=== PATIENT | male | born 2005 | race Caucasian/White ===

== ENCOUNTER 2024-05-03 07:41 | Emergency (ER) | payer OTHER, SELFPAY ==
--- NOTE | ~2024-05-03 | CT_ITS ---
EXAMINATION: CT HEAD WITHOUT CONTRAST CLINICAL INFORMATION: Headache COMPARISON: None available. TECHNIQUE: Contiguous axial imaging was performed from the skull base to vertex without intravenous administration of contrast. This CT examination was performed using dose optimization techniques as appropriate, variously including the following: *Automated exposure control *Adjustment of mA and/or kV according to patient size (this includes techniques or standardized protocols for targeted exams where dose is matched to indication/reason for exam; i.e. extremities or head) *Use of iterative reconstruction technique DLP: 592 mGy/cm FINDINGS: There is no acute intra-axial, extra-axial bleed, masses or midline shift. There is no acute infarction in evolution. There is no edema. The ashley to white matter differentiation is maintained normal. The lateral ventricles are symmetrical in size and configuration without enlargement. No abnormality seen in the posterior fossa. Bone windows reveal no calvarial abnormality. The scalp soft tissue abnormality. The paranasal sinuses and mastoid air cells are well-aerated. CT/CT head/brain wo IV con IMPRESSION: No acute intracranial process seen. Electronically signed by: Chuck Resendiz MD 05/03/2024 09:03 AM EDT
[2024-05-03 07:44] VITALS: BP 146/79; PULSE 92; RESP 16; TEMP 37; O2SAT 99; BMI 17.9
--- NOTE | 2024-05-03 07:49 | PC.NURSE ---
pt not wanting to do blood work at this time stating no mom i am not doing blood work I would rather this RN stated that we can wait to order anything until they got into the back to talk with a provider
--- NOTE | 2024-05-03 08:27 | ED.NEUROSD ---
HPI - Neuro Symptoms/Deficit General Chief Complaint: Neuro Symptoms/Deficit Stated Complaint: headache, stiff neck, weakness Time Seen by Provider: 05/03/24 08:10 History of Present Illness HPI Narrative: patient is a 18-year-old male presents today with having buzzing vibration sensation to his head. Denies any changes in vision there is no fever no chills. There is no focal weakness. Complaining of some pain to the trapezius area on the right side. Went to urgent Care was given Flonase. Has a history of anxiety. Patient absolutely refused any blood work. Was worried about his head after looking in the Internet. Denies any sudden in the family. No family history of subarachnoid hemorrhage. No history of migraine in the past there is no pain. Related Data Allergies Allergy/AdvReac Type Severity Reaction Status Date / Time doxycycline Allergy Vomiting Verified 05/03/24 07:48 Review of Systems Review of Systems: Positive buzzing sensation to his head on the right side Yes all other systems are reviewed and are negative PMFSH Past Medical History Attestation statement: The following information was validated with the patient. Social History Social History Smoked in Last 30 Days: Yes Advance Directives: No Advance Directives Information Provided: Yes Physical Exam Vital Signs: Vital Signs: Last Vital Signs Temp 98.6 F 05/03/24 07:44 Pulse 92 05/03/24 07:44 Resp 16 05/03/24 07:44 BP 146/79 H 05/03/24 07:44 Pulse Ox 99 05/03/24 07:44 O2 Del Method Room Air 05/03/24 07:44 BMI result Body Mass Index 17.9 Appearance: Alert. Oriented X3. No acute distress. Eyes: Pupils equal, round and reactive to light. ENT: Pharynx normal. Neck: Normal inspection. Neck supple. No lymph nodes noted. No crepitus CVS: Normal heart rate and rhythm. Pulses normal. Normal S1 and S2 Respiratory: No respiratory distress. Breath sounds normal. No Wheezing. No rales Abdomen: Soft and nontender. No rigidity. No distention. good BS x4 Skin: Skin warm and dry. Normal skin color. Normal skin turgor. Extremities: No lower extremity edema. Neurovascular intact to all extremities. No Lacerations. No Rash Neuro: Oriented X 3. No motor deficit. No sensory deficit. Moving all extermities. No slurred speech Medications Administered Discontinued Medications Generic Name Dose Route Start Last Admin Trade Name Emerson PRRoney Reason Stop Dose Admin Lorazepam 0.5 mg 05/03/24 08:23 05/03/24 08:38 Lorazepam 0.5 Mg Tablet PO 05/03/24 08:24 0.5 mg ONCE ONE Administration Lorazepam 0.5 mg 05/03/24 10:26 05/03/24 11:13 Lorazepam 0.5 Mg Tablet PO 05/03/24 10:27 0.5 mg ONCE ONE Administration Medical Decision Making Medical Decision Making [facility] Narrative: Well-appearing no acute distress neurologically intact. Had a long discussion with patient and family about pros and cons of getting a CT scan. felt the yield of the CT to be somewhat low but given patient's extreme anxiety feeling of vibrating sensation and wanting a CT scan a CT scan was ordered. There is no focal weakness. There is no neck pain. There is no signs to suggest patient has meningitis. He refused all blood work. Appear very anxious. A dose of Ativan was given. Currently in stable condition. Patient's CT scan of the head is grossly negative by my interpretation I reviewed radiology's reading which was grossly negative as well. Patient's electrolytes were normal CBC is normal patient's symptom improved with a dose of Ativan. We had the repeated when patient was getting blood drawn as he feel extremely anxious. Currently in stable condition. Will discharge home symptom free Differential Diagnosis Differential Diagnoses: The differential diagnosis associated with the presentation includes anxiety, intracranial bleed, mass, fracture Admission/Observation Consideration of admission/observation: Escalation of care including admission/observation considered Lab Data [facility] Lab Attestation statement: I reviewed the patient's lab results. 05/03/24 11:44 05/03/24 11:44 Labs: Lab Results 05/03/24 Range/Units 11:44 WBC 6.5 (4.8-10.8) X10*3/uL RBC 4.54 L (4.60-5.80) X10*6/uL Hgb 13.9 L (14.0-18.0) g/dl Hct 37.9 L (42.0-52.0) % MCV 83.5 (80.0-98.0) fL MCH 30.6 (27.0-33.0) pg MCHC 36.7 H (31.0-36.0) g/dl RDW 11.7 (11.0-16.0) % Plt Count 235 (160-400) X10*3/uL MPV 9.0 L (9.4-12.4) fL Immature Gran % (Auto) 0.3 (0.0-0.4) % Neut % (Auto) 56.9 (45-73) % Lymph % (Auto) 31.7 (20-40) % [place] % (Auto) 9.3 (2-11) % Eos % (Auto) 1.2 (0-4) % Baso % (Auto) 0.6 (0-2) % Lymph # (Auto) 2.1 (1.2-4.9) X10*3/uL [place] # (Auto) 0.6 (0.1-1.2) X10*3/uL Eos # (Auto) 0.1 (0.0-0.4) X10*3/uL Baso # (Auto) 0.0 (0.0-0.2) X10*3/uL Abs Immat Gran (auto) 0.02 (0.00-0.03) X10*3/uL Absolute Neuts (auto) 3.7 (2.0-8.3) x10*3/uL Absolute Nucleated RBC 0.000 (0.0-0.012) X10*3/uL Nucleated RBC % (auto) 0.0 (0.0-0.2) /100WBC Sodium 141 (135-145) mmol/L Potassium 3.7 (3.3-5.1) mmol/L Chloride 109 H (96-108) mmol/L Carbon Dioxide 25 (22-29) mmol/L Anion Gap 11 L (12-20) BUN 9 (9-16) mg/dL Creatinine 0.82 (0.5-1.4) mg/dL Estim Creat Clear Calc 112.5 Estimated GFR > 60 Random Glucose 85 (60-115) mg/dL Calcium 9.3 (8.4-10.2) mg/dL Independent Interpretation I performed an independent interpretation of an: CT Scan ( CT head was grossly negative) Radiology Impression Discussion of test interpretation with radiology: I have reviewed the radiologist's reading. Independent Historian Clinical information obtained from an independent historian. History obtained from or confirmed by: Parent Social Determinants Patient?s care significantly limited by Social Determinants of Health including: Problems related to primary support group Discharge Plan Discharge Clinical Impression: Anxiety Patient Disposition: Home, Self-Care Instructions: Anxiety (ED) Referrals: Desiree Pulido MD [Primary Care Provider] - 05/05/24 Print Language: Korean
[2024-05-03] MEDS: LORazepam 0.5 MG TABLET PO ×2 (08:38→11:13)
[2024-05-03 11:53] LABS: MANUAL DIFF FLAG NO
[2024-05-03 11:55] LABS: Basophils Percent Auto 0.6 % (0-2); Eosinophils Absolute Auto 0.1 X10*3/uL (0.0-0.4); Eosinophils Percent Auto 1.2 % (0-4); Hematocrit 37.9 % (42.0-52.0); Hemoglobin 13.9 g/dl (14.0-18.0); Imm Gran Abs Auto 0.02 X10*3/uL (0.00-0.03); Imm Gran Pct Auto 0.3 % (0.0-0.4); Lymphocytes Absolute Auto 2.1 X10*3/uL (1.2-4.9); Lymphocytes Percent Auto 31.7 % (20-40); Mean Corpuscular HGB Conc 36.7 g/dl (31.0-36.0); Mean Corpuscular Hemoglobin 30.6 pg (27.0-33.0); Mean Corpuscular Volume 83.5 fL (80.0-98.0); Monocytes Absolute Auto 0.6 X10*3/uL (0.1-1.2); Monocytes Percent Auto 9.3 % (2-11); Neutrophils Absolute Auto 3.7 x10*3/uL (2.0-8.3); Neutrophils Percent Auto 56.9 % (45-73); Platelet Count 235 X10*3/uL (160-400); Red Blood Count 4.54 X10*6/uL (4.60-5.80); Red Cell Distribution Width 11.7 % (11.0-16.0); White Blood Count 6.5 X10*3/uL (4.8-10.8)
[2024-05-03 12:07] LABS: Anion Gap 11 (12-20); Blood Urea Nitrogen 9 mg/dL (9-16); Calcium 9.3 mg/dL (8.4-10.2); Carbon Dioxide 25 mmol/L (22-29); Chloride 109 mmol/L (96-108); Creatinine Clr Calc Pharmacy 112.5; Estimated Glomerular Filt Rate > 60; Glucose Random 85 mg/dL (60-115); Potassium 3.7 mmol/L (3.3-5.1); Sodium 141 mmol/L (135-145)
[2024-05-03 12:50] VITALS: BP 130/84; PULSE 82; RESP 18; TEMP 36.8; O2SAT 97
[2024-05-03 12:51] VITALS: BP 130/84; PULSE 82; RESP 18; TEMP 36.8; O2SAT 97
== END 2024-05-03 12:51 | disposition home or self-care (01) ==
PROVIDERS: Emergency Provider Emergency Medicine Emergency Medical Services; PCP Pediatrics
DX: F41.9 Anxiety disorder, unspecified (principal); R51.9 Headache, unspecified; M54.2 Cervicalgia; R53.1 Weakness
CPT/HCPCS: 36415; 70450; 80048; 85025; 99284

== ENCOUNTER → 2024-05-03 08:23 | Outpatient (BNV) | payer OTHER, SELFPAY | PROVIDERS: Emergency Provider Emergency Medicine Emergency Medical Services; PCP Pediatrics; Visit Provider Radiology Diagnostic Radiology | DX: R51.9 Headache, unspecified (principal) | CPT/HCPCS: 70450 ==